=== PATIENT | female | born 1995 | race Two or more races ===

== ENCOUNTER → 2024-05-16 | Outpatient (CLI) | payer OTHER, MEDICAID, SELFPAY ==
[2024-05-16 13:38] LABS: HCG Titer if Positive Positive
[2024-05-16 13:51] LABS: Beta HCG,Quantitative 503 mIU/mL (<5.0)
== END | disposition home or self-care (01) ==
LOC: COPL 12:02
PROVIDERS: PCP Family Medicine; Referring Provider Nurse Practitioner Family; Visit Provider Nurse Practitioner Family
DX: Z32.01 Encounter for pregnancy test, result positive (principal)
CPT/HCPCS: 36415; 84702; 84703

== ENCOUNTER → 2025-05-09 | Outpatient (CLI) | payer OTHER, MEDICAID, SELFPAY ==
[2025-05-09 09:57] LABS: Misc Send Out* See Sep Rpt
== END | disposition home or self-care (01) ==
LOC: COPL 09:43
PROVIDERS: PCP Nurse Practitioner Family; Referring Provider Student in an Organized Health Care Education/Training Program; Visit Provider Student in an Organized Health Care Education/Training Program
DX: Z23 Encounter for immunization (principal)
CPT/HCPCS: 86735; 86762; 86765